=== PATIENT | male | born 1960 | race Caucasian/White ===

== ENCOUNTER 2017-08-15 17:24 | Emergency (ER) | payer MEDICARE, MEDICAID ==
[~2017-08-15] VITALS: Ht 190.5 cm; Wt 111.1 kg
[~2017-08-15 17:24] MED LIST: ARIP10TA9 PO
--- NOTE | 2017-08-15 18:00 | NUR ---
Patient discharged to home in stable conditon. Written and verbal after care instructions given to patient. Patient verbalizes understanding of instructions.
== END 2017-08-15 18:01 | disposition home or self-care (01) ==
LOC: ER 17:28
DX: L30.9 Dermatitis, unspecified (principal); Z88.0 Allergy status to penicillin
CPT/HCPCS: A4663